=== PATIENT | female | born 1960 | race Caucasian/White ===

== ENCOUNTER 2018-05-17 06:35 | Inpatient (IN) | payer OTHER ==
[~2018-05-17] VITALS: Ht 157.5 cm; Wt 76.2 kg
[~2018-05-17 06:35] MED LIST: AMLO5TAB4 PO; PRO20 PO
[2018-05-17] MEDS ORDERED: CEFAZOLIN SOD 1 GM/ ISO 50 ML PREMIX IV ONE (07:00)
[2018-05-17] MEDS ORDERED: POLYMYXIN 500,000/BACIT.10,000 UNITS in NS IRR 1 L IR ONE (07:09)
[2018-05-17] MEDS ORDERED: CEFAZOLIN 1 GM IVPB PREMIX 50 ML IV ONE (07:29)
[2018-05-17] MEDS ORDERED: PROPOFOL 200MG/ 20ML VIAL (DIPRIVAN) IV ONE (07:30)
[2018-05-17] MEDS ORDERED: BUPIVACAINE /PF 0.5% 30 ML VIAL INJ ONE (07:30)
[2018-05-17] MEDS ORDERED: WATER FOR IRRIGATION,STERILE 1,000 ML IRRIG.SOLN IR ONE (07:30)
[2018-05-17] MEDS ORDERED: PHENYLEPHRINE HCL 10 MG/ML VIAL (NEOSYNEPHRINE) IV ONE (07:30)
[2018-05-17] MEDS ORDERED: fentaNYL CITRATE/PF 100 MCG/2 ML AMP IVP ONE (07:30)
[2018-05-17] MEDS ORDERED: GLYCOPYRROLATE 0.2 MG/ML VIAL IJ ONE (07:30)
[2018-05-17] MEDS ORDERED: MIDAZOLAM HCL 5 MG/5 ML VIAL IVP ONE (07:30)
[2018-05-17] MEDS ORDERED: ROCURONIUM BROMIDE 10 MG/ML (ZEMURON) IV ONE (07:30)
[2018-05-17] MEDS ORDERED: LIDOCAINE 2%, 20 ML MDV INJ ONE (07:30)
[2018-05-17] MEDS ORDERED: SEVOFLURANE 15 MIN GAS INH ONE (07:30)
[2018-05-17] MEDS ORDERED: D5/0.45 NS 1,000 ML IV SCH (08:38)
[2018-05-17] MEDS ORDERED: HYDROmorphone 2 MG/ML VIAL IVP PRN (08:45)
[2018-05-17] MEDS ORDERED: HYDROcodone/ACETAMIN 5-325 MG TAB (NORCO/ VICODIN) PO PRN ×2 (08:45)
[2018-05-17] MEDS ORDERED: KETOROLAC TROMETHAMINE 30 MG VIAL IVP PRN (09:00)
[2018-05-17] MEDS ORDERED: fentaNYL CITRATE/PF 100 MCG/2 ML AMP IVP PRN ×2 (09:00)
[2018-05-17] MEDS ORDERED: KETOROLAC TROMETHAMINE 30 MG VIAL ONE (09:47)
[2018-05-17] MEDS ORDERED: HYDROcodone/ACETAMIN 5-325 MG TAB (NORCO/ VICODIN) ONE (10:53)
[2018-05-17 14:17] VITALS: BP_SYST 132
== END 2018-05-17 12:00 | disposition home or self-care (01) | DRG 355 ==
LOC: UNDOADMOB 06:35 → INTOOBSV 06:35 → OBSVTOIN 06:35 → SMU 06:35
PROVIDERS: ADMIT Colon & Rectal Surgery; ATTEND Colon & Rectal Surgery
PROC: 3E0T3BZ Introduction of Anesthetic Agent into Peripheral Nerves and Plexi, Percutaneous Approach (ICD-10-PCS; 2018-05-17)
PROC: 0WQF0ZZ Repair Abdominal Wall, Open Approach (ICD-10-PCS; principal; 2018-05-17 07:30)
DX: K43.0 Incisional hernia with obstruction, without gangrene (principal); I10 Essential (primary) hypertension; F41.8 Other specified anxiety disorders; G43.009 Migraine without aura, not intractable, without status migrainosus; Z86.010 Personal history of colon polyps; Z80.42 Family history of malignant neoplasm of prostate; Z80.8 Family history of malignant neoplasm of other organs or systems
CPT/HCPCS: 87081; 88302; C1781; G0378; J0690; J1885; J2001; J2250; J2370; J2704; J3010; J3490; J7120